=== PATIENT | male | born 1950 | race Caucasian/White ===

== ENCOUNTER 2019-01-19 06:10 | Day surgery (SDC) | payer OTHER ==
[~2019-01-19] VITALS: Ht 180.3 cm; Wt 67.6 kg
[~2019-01-19 06:10] MED LIST: LEVO100T79 PO; TAMS0.4C97 PO
[2019-01-19] MEDS ORDERED: LIDOCAINE 2% PF 5 ML VIAL. ONE (06:23)
[2019-01-19] MEDS ORDERED: PROPOFOL 20 ML IV ONE (06:23)
[2019-01-19] MEDS ORDERED: ONDANSETRON PF 4 MG/2 ML VIAL. ONE (06:23)
[2019-01-19] MEDS ORDERED: DEXAMETHASONE SOD PHOS 20 MG/5 ML VIAL. ONE (06:23)
[2019-01-19] MEDS ORDERED: BUPIVAC MPF-EPI 0.5%-1:200000 30 ML VIAL. ONE (06:24)
[2019-01-19] MEDS ORDERED: GELATIN SPONGE SIZE 100. ONE (06:24)
[2019-01-19] MEDS ORDERED: LIDOCAINE 2% JELLY 6ML IN APPLICATOR. ONE (06:24)
[2019-01-19] MEDS ORDERED: IV RINGERS,LACTATED 1000ML 1,000 ML IV SCH (07:00)
[2019-01-19] MEDS ORDERED: HYDROmorphone 2 MG/ML VIAL IV PRN (07:00)
[2019-01-19] MEDS ORDERED: PROCHLORPERAZINE 10 MG/2 ML VIAL. IV PRN (07:00)
[2019-01-19] MEDS ORDERED: MORPHINE SULFATE 2 MG/ML VIAL. IV PRN (07:00)
[2019-01-19] MEDS ORDERED: LIDOCAINE 1% PF 2 ML VIAL. ID PRN (07:00)
[2019-01-19] MEDS ORDERED: fentaNYL PF VIAL 100 MCG/2 ML VIAL IV PRN ×2 (07:00)
[2019-01-19] MEDS ORDERED: ONDANSETRON PF 4 MG/2 ML VIAL. IV PRN (07:00)
[2019-01-19] MEDS ORDERED: fentaNYL PF VIAL 100 MCG/2 ML VIAL ONE (07:53)
[2019-01-19] MEDS ORDERED: MIDAZOLAM HCL/PF 2 MG/2 ML VIAL. ONE (07:54)
[2019-01-19] MEDS ORDERED: ROCURONIUM 50 MG/5 ML VIAL. ONE (08:06)
[2019-01-19] MEDS ORDERED: PHENYLEPHRINE in 0.9% NACL PF 1 MG/10 ML SYRINGE. IV ONE (08:17)
[2019-01-19] MEDS ORDERED: SEVOFLURANE 31 TO 60 MINUTES. IH ONE (08:17)
[2019-01-19] MEDS ORDERED: NEOSTIGMINE METHYLSULFATE 5 MG/5 ML SYRINGE. ONE (08:33)
[2019-01-19] MEDS ORDERED: GLYCOPYRROLATE 1 MG/5 ML VIAL. ONE (08:34)
[2019-01-19] MEDS ORDERED: ePHEDrine PF IN SALINE 50 MG/10 ML SYRINGE. IV ONE (08:42)
--- NOTE | 2019-01-19 08:45 | PDOC1 ---
History and Physical Date of Admission Date of Admission DATE: 01/19/19 TIME: 08:40 Identification/Chief Complaint Chief Complaint bleeding hemorrhoid Source Source: Chart review, Patient History of Present Illness History of Present Illness Almas is a 68 yo male inmate who has had previous banding of internal hemorrhoids. He continues to have some bleeding with stools and occasional prolapse. Past Medical History Cardiovascular: No pertinent hx Pulmonary: No pertinent hx Renal/: No pertinent hx Past Surgical History Past Surgical History: Other (head and neck cancer s/p chemo and RoRx) Family History Family History: No Significant Social History Smoke: No ALCOHOL: none Drugs: None Current Medications Current Medications Current Medications Ondansetron HCl (Zofran) 4 mg PRN Q6HRS PRN IV NAUSEA/VOMITING; Start 01/19/19 at 07:00; Stop 01/20/19 at 06:59 Fentanyl Citrate (Fentanyl 2ml Vial) 25 mcg PRN Q5MIN PRN IV MILD PAIN; Start 01/19/19 at 07:00; Stop 01/20/19 at 06:59 Fentanyl Citrate (Fentanyl 2ml Vial) 50 mcg PRN Q5MIN PRN IV MODERATE TO SEVERE PAIN; Start 01/19/19 at 07:00; Stop 01/20/19 at 06:59 Morphine Sulfate (Morphine Sulfate) 1 mg PRN Q10MIN PRN IV SEVERE PAIN; Start 01/19/19 at 07:00; Stop 01/20/19 at 06:59 Ringer's Solution 1,000 ml @ 30 mls/hr Q24H IV Last administered on 01/19/19at 06:40; Start 01/19/19 at 07:00; Stop 01/19/19 at 18:59 Lidocaine HCl (Xylocaine-Mpf 1% 2ml Vial) 2 ml PRN 1X PRN ID PRIOR TO IV START ; Start 01/19/19 at 07:00; Stop 01/20/19 at 06:59 Hydromorphone HCl (Dilaudid) 0.5 mg PRN Q10MIN PRN IV SEV PAIN, Second choice; Start 01/19/19 at 07:00; Stop 01/20/19 at 06:59 Prochlorperazine Edisylate (Compazine) 5 mg PACU PRN PRN IV NAUSEA, MRX1; Start 01/19/19 at 07:00; Stop 01/20/19 at 06:59 Cefazolin Sodium 50 ml @ 100 mls/hr 1X PREOP PRN IV PRIOR TO SURGERY Last administered on 01/19/19at 08:00; Start 01/19/19 at 06:00 Propofol 20 ml @ As Directed STK-MED ONCE IV ; Start 01/19/19 at 06:23; Stop 01/19 at 06:24; Status DC Lidocaine HCl (Lidocaine Pf 2% Vial) 5 ml STK-MED ONCE .ROUTE ; Start 01/19/19 at 06:23; Stop 01/19/19 at 06:24; Status DC Dexamethasone Sodium Phosphate (Decadron) 20 mg STK-MED ONCE .ROUTE ; Start 01/19 at 06:23; Stop 01/19/19 at 06:24; Status DC Ondansetron HCl (Zofran) 4 mg STK-MED ONCE .ROUTE ; Start 01/19/19 at 06:23; Stop 01/19/19 at 06:24; Status DC Gelatin (Gelfoam Size 100) 1 each STK-MED ONCE .ROUTE ; Start 01/19/19 at 06:24 ; Stop 01/19/19 at 07:24; Status DC Bupivacaine HCl/ Epinephrine Bitart (Sensorcain-Mpf Epi 0.5%-1:[id number]) 30 ml STK -MED ONCE .ROUTE ; Start 01/19/19 at 06:24; Stop 01/19/19 at 07:24; Status DC Lidocaine HCl (Glydo (Lidocaine) Jelly) 6 naina STK-MED ONCE .ROUTE ; Start at 06:24; Stop 01/19/19 at 07:24; Status DC Fentanyl Citrate (Fentanyl 2ml Vial) 100 mcg STK-MED ONCE .ROUTE ; Start at 07:53; Stop 01/19/19 at 07:54; Status DC Midazolam HCl (Versed) 2 mg STK-MED ONCE .ROUTE ; Start 01/19/19 at 07:54; Stop 01/19/19 at 07:55; Status DC Rocuronium [place] (Zemuron) 50 mg STK-MED ONCE .ROUTE ; Start 01/19/19 at 08:06 ; Stop 01/19/19 at 08:07; Status DC Phenylephrine HCl (PHENYLEPHRINE in 0.9% NACL PF) 1 mg STK-MED ONCE IV ; Start 01/19/19 at 08:17; Stop 01/19/19 at 08:18; Status DC Sevoflurane (Ultane) 30 ml STK-MED ONCE IH ; Start 01/19/19 at 08:17; Stop at 08:18; Status DC Neostigmine Methylsulfate (Neostigmine Methylsulfate) 5 mg STK-MED ONCE .ROUTE ; Start 01/19/19 at 08:33; Stop 01/19/19 at 08:35; Status DC Glycopyrrolate (Robinul) 1 mg STK-MED ONCE .ROUTE ; Start 01/19/19 at 08:34; Stop 01/19/19 at 08:35; Status DC Active Scripts Active Reported Flomax (Tamsulosin Hcl) 0.4 Mg Cap.er.24h 1 Cap PO DAILY Unithroid (Levothyroxine Sodium) 100 Mcg Tablet 100 Mcg PO DAILY Allergies Allergies: Coded Allergies: No Known Drug Allergies (Unverified , 01/19/19) ROS Genitourinary: YES Other (BPH) Physical Exam General: Alert, Oriented X3, No acute distress HEENT: Atraumatic Lungs: Normal air movement Heart: RRR Abdomen: Soft Rectal Exam: other (visual exam of the anal orifice is unremarkable, anoscopy showed a single hemorroid at 8:00) Vitals Vitals Vital Signs Date Time Temp Pulse Resp B/P (MAP) Pulse Ox O2 Delivery O2 Flow Rate FiO2 01/19/19 06:36 98.0 77 18 152/94 96 Room Air 98.0 VTE Prophylaxis Ordered VTE Prophylaxis Devices: Yes VTE Pharmacological Prophylaxi: No Assessment/Plan Assessment/Plan bleeding occasionally prolapsing internal hemorrhoid remove explained to Almas he will have some pain, possible bleeding post op while healing occurs he would like to proceed SHAWN KRUEGER MD Jan 19, 2019 08:45
[2019-01-19] MEDS ORDERED: NALOXONE 0.4 MG/ML VIAL. ONE ×2 (08:47)
--- NOTE | 2019-01-19 09:05 | PDOC ---
BRIEF OPERATIVE NOTE Date: Jan 19, 2019 Pre-Op Diagnosis bleeding internal hemorrhoid Post-Op Diagnosis same Procedure Performed EUA rigid procto hemorrhoidectomy Surgeon Guillermo Anesthesia Type: General Blood Loss 10cc IV Fluid 1000cc Specimens Obtained hemorrhoid Findings internal hemorrhoid, 8:00 2-3+ enlarged prostate Complications none SHAWN KRUEGER MD Jan 19, 2019 09:05
[2019-01-19] MEDS ORDERED: FLUMAZENIL 0.5 MG/5 ML VIAL. IV ONE (09:15)
--- NOTE | 2019-01-19 09:49 | DISCH ---
DISCHARGE INSTRUCTIONS Condition on Discharge Condition on Discharge: Stable Activity After Discharge Activity Instructions for Disc: Activity as tolerated, Avoid exertion Lifting Instructions after Dis: No heavy lifting Driving Instructions after Dis: Do not drive Diet after Discharge Diet after Discharge: Regular Wound Incision Care Other wound/incision instructi: jared richards prn Follow-Up Follow Up With: Guillermo two weeks SHAWN KRUEGER MD Jan 19, 2019 09:49
[2019-01-19 10:40] VITALS: BP 162/82
--- NOTE | 2019-01-19 11:39 | OP ---
DATE OF SURGERY: 01/19/2019 PREOPERATIVE DIAGNOSIS: Bleeding internal hemorrhoid. POSTOPERATIVE DIAGNOSIS: Bleeding internal hemorrhoid. PROCEDURE: 1. Exam under anesthesia. 2. Rigid proctoscopy. 3. Hemorrhoidectomy. SURGEON: Shawn Krueger MD ANESTHESIA: General endotracheal. ESTIMATED BLOOD LOSS: 10. INTRAVENOUS: 1 liter. INDICATIONS: The patient is a 68-year-old male inmate with previous multiple bandings of internal hemorrhoids. He has a remaining hemorrhoid that occasionally prolapse and does bleed with stools. He is brought for excision. OPERATIVE FINDINGS: He had a single large hemorrhoid at 8 o'clock with evidence of previous banding of internal hemorrhoids. DESCRIPTION OF PROCEDURE: The patient brought to the operating suite, given a general endotracheal anesthetic, placed in the prone position, buttocks taped apart. Digital rectal exam revealed a 2-3+ enlarged prostate without nodularity. Rigid scope was inserted and under direct vision, advanced approximately 10 cm from the anal verge where some tortuosity prevented further investigation. As such, the scope was slowly removed. No abnormalities seen, save the large hemorrhoid at 8 o'clock. The area was then prepped and draped in usual sterile fashion. A 0.5% Marcaine with epinephrine infiltrated circumanally. The hemorrhoid was addressed by placing a proximal hemostatic stitch of 2-0 chromic in the anal canal scoring the perianal skin and excising the hemorrhoid with the LigaSure avoiding injury to the underlying sphincter. 2-0 chromic used to close the mucosal rent. Good hemostasis was present. Gelfoam pack placed in the anal canal. Sterile dressing applied. The patient was taken out of the prone position, awakened from his anesthetic and taken to the recovery room in satisfactory condition. SHAWN KRUEGER MD DR: NICHOLAS/arik JOB#: [id number] / [id number]
--- NOTE | 2019-01-20 15:05 | PATHOLOGY ---
[facility] Accession Number: [id number] . 01 Material submitted: . HEMORRHOID . 01 Clinical history: . Hemorrhoid . 02 Diagnosis: Segment of skin and anorectal mucosa and underlying fibromuscular tissue, hemorrhoidectomy: - Hemorrhoids. 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 - Fibroepithelial polyp. 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 02 Comment: There is no evidence of malignancy. 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 02 Electronically signed: . Narayan Rodriguez MD, Pathologist NPI- [id number] . 01 Gross description: . The specimen is received in formalin, labeled "Gross, Almas, hemorrhoid", is a navarrete-purple, segment of rubbery tissue measuring 3.0 x 1.3 x 1.0 cm. Sectioning reveals a hemorrhagic to navarrete-pink cut surface. Mds Manager tissue is submitted in A1. ([facility]; 01/19/2019) SHS/SHS . 02 Pathologist provided ICD-10: K64.9 . 02 CPT . 329146 Specimen Comment: A courtesy copy of this report has been sent to Specimen Comment: [phone], . Specimen Comment: Report sent to / DR WILLARD Performed at: 01 [facility] [address], [place] [id number] MD Aquilino Lobato MD Phone: [phone] Performed at: [address] [facility] [address] [place], [place] [id number] MD Narayan Rodriguez MD Phone: [phone]
== END 2019-01-19 10:40 | disposition short-term general hospital (02) ==
LOC: SURG 06:10 → EEVIPCON 08:00 → SURG 10:40
PROVIDERS: ATTEND Surgery
DX: K64.8 Other hemorrhoids (principal); K62.89 Other specified diseases of anus and rectum; Z98.890 Other specified postprocedural states; Z79.899 Other long term (current) drug therapy
CPT/HCPCS: 46255; 88304; A7015; J0171; J0690; J1100; J2001; J2250; J2310; J2370; J2405; J2704; J2710; J3010; J3490; J7120; A4461